=== PATIENT | female | born 1960 | race Hispanic/Latino ===

== ENCOUNTER → 2018-06-22 | Outpatient (CLI) | payer OTHER ==
[~2018-06-22] MED LIST: ALPR1TAB7 PO; AMLO5TAB9 PO; ATEN25TA PO; ESTR1TAB17 PO; FENO145T PO; FERR-63 PO; FOLI1TAB82 PO
== END | disposition home or self-care (01) ==
LOC: OIH 07:44
PROVIDERS: ATTEND Internal Medicine
DX: S63.502A Unspecified sprain of left wrist, initial encounter (principal); X58.XXXA Exposure to other specified factors, initial encounter; Y93.89 Activity, other specified; Y92.89 Other specified places as the place of occurrence of the external cause; Y99.8 Other external cause status
CPT/HCPCS: 73100